=== PATIENT | female | born 1995 | race Asian ===

== ENCOUNTER 2024-08-01 08:35 | Inpatient (IN) ==
[2024-08-01] MEDS ORDERED: CALCIUM CARBONATE 500 MG CHEWABLE TAB PO PRN (08:48)
[2024-08-01] MEDS ORDERED: OXYTOCIN 30 UNITS/NSS 30 UNITS/500 ML BAG IV PRN (08:48)
[2024-08-01] MEDS ORDERED: LIDOCAINE 1% LOCAL 20 ML VIAL INFIL PRN (08:48)
[2024-08-01 09:52] LABS: Hematocrit (blood only) 34.5 % (37.0-47.0); Hemoglobin 11.5 g/dl (12.0-16.0); Mean Corpuscular Hemoglobin 31.9 pg (25.0-34.0); Mean Corpuscular Hgb Conc 33.3 g/dL (32.0-36.0); Mean Corpuscular Volume 95.8 fL (80.0-100.0); Mean Platelet Volume 9.8 fL (9.4-12.4); Platelet Count 182 K/uL (130-400); RDW Standard Deviation 45.1 fL (36.4-46.3); White Blood Count 9.91 K/ul (4.8-10.8)
[2024-08-01] MEDS: LACTATED RINGER'S 1,000 ML IV PRN (10:03)
[2024-08-01] MEDS: OXYTOCIN 30 UNITS/NSS 30 UNITS/500 ML BAG IV PRN (10:04)
--- NOTE | 2024-08-01 10:30 | History & Physical Report ---
Date of Service August 01, 2024 Assessment & Plan (1) Encounter for induction of labor: Plan: Patient is a 29yo at 38w3d admitted for induction of labor, IUGR. Sutherland bulb placed this AM Pitocin LR at 125cc/hr AROM when indicated Monitor tracing, currently category I (2) Gestational diabetes mellitus (GDM) affecting , antepartum: Plan: monitor for signs of hyperglycemia: - status of headache, vision changes, abdominal pain, nausea/vomiting - poc glucose if suspicious - treat accordingly with insulin Admission and Anticipated Discharge Date Admission Date: August 01, 2024 History of Present Illness Chief Complaint: induction of labor Primary Care Provider: Daron Batres DO Patient is a 29yo at 38w3d admitted for induction of labor. Complications include IUGR throughout and GDM treated with insulin. Sutherland bulb placed this AM. Patient endorses baby has been moving frequently. Notes intermittent contractions. Endorses minor vaginal bleeding last night. Endorses some clear vaginal discharge about a week ago but nothing since. Had a normal bowel movement this morning, urination this morning as well. Notes she has a minor frontal headache about 2-3/10, being managed with Tylenol. Denies any recent fever, body aches, chills, chest pain, SOB, abdominal pain, LE pain/swelling, or LE numbness/tingling. GBS neg, Rh+, T. pallidum neg Allergies Allergy/AdvReac Type Severity Reaction Status Date / Time No Known Allergies Allergy Verified 07/31/24 13:29 Home Medications Medication Instructions Recorded Confirmed Type 21-iron fu-folic acid 1 mg PO DAILY 12/29/23 08/01/24 History [ Complete] acetone (urine) test (Ketone Urine #50 ea 06/22/24 07/31/24 Rx Test strips) blood sugar diagnostic (OneTouch #150 ea 06/22/24 07/31/24 Rx Verio test strips) blood-glucose meter (OneTouch #1 ea 06/22/24 07/31/24 Rx Verio Reflect Meter) lancets 33 gauge (OneTouch Delica #150 ea 06/22/24 07/31/24 Rx Plus Lancet) ferrous sulfate 325 mg (65 mg 325 mg PO DAILY 08/01/24 08/01/24 History iron) tablet Patient History Medical History (Updated 08/01/24 @ 11:24 by Flroa Cuevas RN) History of pituitary tumor Removed in [place] Hx of migraines History of chicken pox Surgical History S/P tonsillectomy S/P wisdom tooth extraction Family History (Updated 12/29/23 @ 13:32 by Janelle Flor) Mother Diabetes Hypertension Fibroid Father Diabetes Hypertension Denies family history of Ovarian cancer Breast cancer Colorectal cancer Social History (Updated 12/29/23 @ 13:18 by Janelle Flor) Smoking Status: Never smoker Do You Dip or Chew Tobacco: No; Hx Alcohol Use: No Hx Substance Use: No Preferred Language: Urdu Communication Ability: Effective Floor Coverer Required: No Beliefs That Will Affect Care: None marital status: marital status details: Júnior Champion (29) [phone] Current Living Situation: Spouse Current Living Situation Comment: lives with spouse,no pets current occupational status: unemployed Other Information That Helps Us Care for You: No Feels Safe at Home: Yes Safety Concerns: Feels Safe At This Time Assistive Devices: None Review of Systems per HPI Physical Exam Physical Exam: General: A&Ox4, resting comfortably in NAD, nontoxic in appearance Skin: warm, dry, intact HEENT: NC/AT, anicteric sclerae, conjunctiva w/o injection, moist mucous membranes Heart: +s1/s2, RRR, no m/r/g Lungs: equal air entry b/l, clear to auscultation b/l, no wheeze, rales, or rhonchi Abd: +BS, gravid, mild tenderness to palpation, no erythema or lesions Cervical: 1/60/-2, mid, soft; est weight 6lbs Ext: no significant swelling, no erythema or tenderness to palpation; no cyanosis or clubbing Neuro: speech intact, no facial droop, moves all extremities on command : 140 baseline HR , moderate variability, accelerations present, decelerations absent Results & Data Vital Signs (Past 12 Hours) Vital Signs Temp Pulse Resp BP 08/01/24 10:03 75 08/01/24 10:03 112/69 08/01/24 09:30 18 08/01/24 09:30 18 08/01/24 08:59 36.7 C 20 08/01/24 08:50 93 H 111/70 Laboratory Results 08/01/24: Hgb 11.5, POC glucose 114 Code Status & VTE Plan VTE Prophylaxis Plan VTE Prophylaxis will be ordered: No Supervising Physician Co-Signing Physician Notes Resident Physician Supervision Note: I interviewed and examined the patient. Discussed with Dr. Morocho and agree with findings and plan as documented in the note. Any exceptions or clarifications are listed here: [None] Documented By: Carmen Chun MD, FACOG Resident Activity Tracking Resident Involvement: Resident Care Provided Care Provided: OB Delivery
[2024-08-01] MEDS: ACETAMINOPHEN 325 MG TAB PO PRN (12:03)
[2024-08-01] MEDS ORDERED: LIDOCAINE 2% MPF LOCAL 5 ML VIAL EPI PRN (12:35)
[2024-08-01] MEDS ORDERED: NALOXONE HCL 1 MG in SODIUM CHLORIDE 0.9% 1,000 ML IV PRN (12:35)
[2024-08-01] MEDS ORDERED: ROPIVACAINE 0.5% PF 5 MG/ML 20 ML VIAL EPI PRN (12:35)
[2024-08-01] MEDS ORDERED: ePHEDrine sulfate 50 MG/ML AMP IV PRN (12:35)
[2024-08-01] MEDS ORDERED: fentaNYL citrate PF 100 MCG/2 ML VIAL EPI PRN (12:35)
[2024-08-01] MEDS ORDERED: NALOXONE HCL 0.4 MG/1 ML VIAL/CARP IV PRN (12:35)
[2024-08-01] MEDS ORDERED: SODIUM CHLORIDE 0.9% PF INJ 10 ML VIAL EPI PRN (12:35)
[2024-08-01] MEDS ORDERED: BUPIVACAINE 0.25% PF 30 ML VIAL EPI PRN (12:35)
[2024-08-01] MEDS ORDERED: NALBUPHINE HCL INJ 10 MG/ML AMP IV PRN (12:35)
[2024-08-01] MEDS ORDERED: diphenhydrAMINE 50 MG/ML VIAL IV PRN (12:35)
--- NOTE | 2024-08-01 12:35 | Anesthesiology Consultation ---
Date of Service August 01, 2024 Assessment & Plan ASA ASA2 Proposed Anesthesia Anesthesia Type: Labor Epidural Risk / Benefits Reviewed With: PT / POA / Parent / Guardian, Accepts Plan and Informed Consent Obtained History Height/Weight Height: 5 ft 4.96 in Weight: 70.307 kg Allergies Allergy/AdvReac Type Severity Reaction Status Date / Time No Known Allergies Allergy Verified 07/31/24 13:29 Medications Home Medications Medication Instructions Recorded Confirmed Last Taken 21-iron fu-folic acid 1 mg PO DAILY 12/29/23 08/01/24 08/01/24 [ Complete] acetone (urine) test (Ketone Urine #50 ea 06/22/24 07/31/24 Unknown Test strips) blood sugar diagnostic (OneTouch #150 ea 06/22/24 07/31/24 Unknown Verio test strips) blood-glucose meter (OneTouch #1 ea 06/22/24 07/31/24 Unknown Verio Reflect Meter) lancets 33 gauge (OneTouch Delica #150 ea 06/22/24 07/31/24 Unknown Plus Lancet) ferrous sulfate 325 mg (65 mg 325 mg PO DAILY 08/01/24 08/01/24 08/01/24 iron) tablet Active Medications Generic Name Dose Route Start Last Admin Trade Name Freq PRN Reason Stop Dose Admin Acetaminophen 650 mg 08/01/24 08:48 08/01/24 12:03 Acetaminophen 325 Mg Tab PO 08/31/24 08:47 650 mg Q6H PRN Administration Pain Oxytocin 30 units in 500 mls @ 4 mls/hr 08/01/24 08:48 08/01/24 10:34 Pitocin 30 Units/Nss IV 08/03/24 08:47 0.24 units/hr .Q24H PRN 4 mls/hr Labor Induction/Augmentation Titration Protocol 0.24 UNITS/HR Lactated Ringer's 1,000 mls @ 125 mls/hr 08/01/24 08:48 08/01/24 12:38 Lr IV 08/03/24 08:47 50 mls/hr .Q8H PRN Infusion L&D Protocol Protocol Past Medical History Medical History (Updated 08/01/24 @ 11:24 by Flora Cuevas RN) History of pituitary tumor Removed in [place] Hx of migraines History of chicken pox Exercise / Class Metabolic Activity II 4-5 Yardwork/Stairs/Walk up hill Past Family History Family History (Updated 12/29/23 @ 13:32 by Janelle Flor) Mother Diabetes Hypertension Fibroid Father Diabetes Hypertension Denies family history of Ovarian cancer Breast cancer Colorectal cancer Past Surgical History Surgical History S/P tonsillectomy S/P wisdom tooth extraction Past Anesthesia History No Hx of Anesthesia Complications and No Family Hx of Anesthesia Complications History of PONV No Hx of PONV and No Hx of Motion Sickness Social History Smoking Status: Never smoker Do You Dip or Chew Tobacco: No Hx Alcohol Use: No Hx Substance Use: No substance use type: does not use Review of Systems denies fever/cough/ colds/ chest pain/ SOB/ LEANNA denies LEANNA Physical Exam Vital Signs Last Vital Signs Temp 36.7 C 08/01/24 08:59 Pulse 82 08/01/24 13:09 Resp 18 08/01/24 12:30 BP 107/58 L 08/01/24 13:09 Pulse Ox 99 08/01/24 13:08 ENMT Mouth: no TMJ abnormality and no dentition abnormality Thyromental Distance: > or= 3.5 Finger Breadths Mallampati Class: II Neck neck extension not limited Respiratory normal respiratory effort; no respiratory distress Auscultation: lungs clear to auscultation bilaterally Cardiovascular Rate/Rhythm: regular rate and regular rhythm Neurologic moves all extremities Psychiatric Orientation: alert and oriented x 3 Testing Laboratory Results 08/01/24 09:26 08/01/24 09:44 POC Glucose 114 H
[2024-08-01] MEDS: LIDOCAINE 2%/EPINEPHRINE 1:200,000 20 ML PF ONE (12:56)
[2024-08-01] MEDS: fentANYL 2 MCG/ML BUPIVacaine 0.125%-NSS 100ML BAG ONE (12:56)
[2024-08-01] MEDS: fentaNYL citrate PF 100 MCG/2 ML VIAL ONE (13:03)
[2024-08-01] MEDS: BUPIVACAINE 0.25% PF 30 ML VIAL ONE (13:03)
[2024-08-01] MEDS: fentaNYL citrate PF 100 MCG/2 ML VIAL EPI STA (13:40)
[2024-08-01] MEDS: BUPIVACAINE 0.25% PF 30 ML VIAL EPI STA (13:40)
[2024-08-01] MEDS: LIDOCAINE 2%/EPINEPHRINE 1:200,000 20 ML PF EPI STA (13:40)
[2024-08-01] MEDS: SODIUM CHLORIDE 0.9% PF INJ 10 ML VIAL EPI STA (13:40)
[2024-08-01] MEDS: SODIUM CHLORIDE 0.9% PF INJ 10 ML VIAL ONE (13:40)
[2024-08-01] MEDS: ONDANSETRON INJ 2 MG/ML 2 ML VIAL IV PRN (18:28)
[2024-08-01] MEDS: fentANYL 2 MCG/ML BUPIVacaine 0.125%-NSS 100ML BAG EPI PRN (20:45)
[2024-08-01] MEDS: diphenhydrAMINE 50 MG/ML VIAL IV STA (22:41)
--- NOTE | 2024-08-02 03:32 | Labor Progress Brief Note ---
Date of Service August 02, 2024 Subjective Reason For Note: Routine Evaluation contractions Q2 minutes with external toco FHT's not reactive but reassuring cervix 6cm/95/-1 IUPC placed Assessment & Plan Admission and Anticipated Discharge Date Admission Date: August 01, 2024 Results & Data Vital Signs (Past 12 Hours) Vital Signs Temp Pulse Resp BP Pulse Ox 08/02/24 03:28 81 96 08/02/24 03:23 87 96 08/02/24 03:18 96 08/02/24 03:18 78 08/02/24 03:18 76 113/67 08/02/24 03:13 75 96 08/02/24 03:08 76 96 08/02/24 03:05 18 08/02/24 03:05 98.8 F 18 08/02/24 03:03 85 114/63 96 08/02/24 02:58 85 95 08/02/24 02:53 88 96 08/02/24 02:48 72 95 08/02/24 02:46 71 107/59 L 08/02/24 02:43 70 95 08/02/24 02:38 72 96 08/02/24 02:33 69 95 08/02/24 02:32 71 106/58 L 08/02/24 02:28 73 95 08/02/24 02:23 76 95 08/02/24 02:18 71 96 08/02/24 02:16 71 122/68 08/02/24 02:13 70 95 08/02/24 02:08 85 97 08/02/24 02:03 69 96 08/02/24 02:01 73 111/66 08/02/24 01:58 68 96 08/02/24 01:53 73 96 08/02/24 01:48 68 96 08/02/24 01:47 68 118/69 08/02/24 01:43 75 97 08/02/24 01:40 18 08/02/24 01:40 98.8 F 18 08/02/24 01:38 87 94 08/02/24 01:33 76 96 08/02/24 01:31 74 107/57 L 08/02/24 01:28 72 95 08/02/24 01:23 76 96 08/02/24 01:18 73 96 08/02/24 01:17 74 106/57 L 08/02/24 01:13 73 95 08/02/24 01:08 71 96 08/02/24 01:03 73 96 08/02/24 01:01 72 101/59 L 08/02/24 00:58 72 95 08/02/24 00:53 73 96 08/02/24 00:48 96 08/02/24 00:48 74 08/02/24 00:48 73 101/56 L 08/02/24 00:43 71 96 08/02/24 00:38 75 96 08/02/24 00:33 71 95 08/02/24 00:31 71 102/59 L 08/02/24 00:28 72 96 08/02/24 00:23 73 96 08/02/24 00:19 18 08/02/24 00:19 98.4 F 18 08/02/24 00:18 79 96 08/02/24 00:16 75 102/55 L 08/02/24 00:13 76 96 08/02/24 00:08 79 96 08/02/24 00:03 79 97 08/02/24 00:02 78 108/58 L 08/01/24 23:58 96 08/01/24 23:58 79 08/01/24 23:53 96 08/01/24 23:53 78 08/01/24 23:48 96 08/01/24 23:48 79 08/01/24 23:47 78 08/01/24 23:47 108/59 L 08/01/24 23:43 96 08/01/24 23:43 78 08/01/24 23:38 96 08/01/24 23:38 78 08/01/24 23:33 97 08/01/24 23:33 78 08/01/24 23:31 78 08/01/24 23:31 109/61 08/01/24 23:28 95 08/01/24 23:28 80 08/01/24 23:23 96 08/01/24 23:23 77 08/01/24 23:18 97 08/01/24 23:18 77 08/01/24 23:16 80 08/01/24 23:16 112/62 08/01/24 23:13 96 08/01/24 23:13 81 08/01/24 23:08 96 08/01/24 23:08 81 08/01/24 23:03 97 08/01/24 23:03 84 08/01/24 23:01 83 08/01/24 23:01 105/63 08/01/24 22:58 96 08/01/24 22:58 83 08/01/24 22:53 96 08/01/24 22:53 85 08/01/24 22:48 96 08/01/24 22:48 88 08/01/24 22:46 96 H 08/01/24 22:46 115/70 08/01/24 22:43 97 08/01/24 22:43 91 H 08/01/24 22:38 97 08/01/24 22:38 92 H 08/01/24 22:33 96 08/01/24 22:33 93 H 08/01/24 22:32 91 H 08/01/24 22:32 116/66 08/01/24 22:28 95 08/01/24 22:28 88 08/01/24 22:23 96 08/01/24 22:23 92 H 08/01/24 22:18 94 08/01/24 22:18 88 08/01/24 22:18 88 08/01/24 22:18 113/69 08/01/24 22:13 95 08/01/24 22:13 95 H 08/01/24 22:08 98 08/01/24 22:08 98 H 08/01/24 22:03 99 08/01/24 22:03 98 H 08/01/24 22:01 104 H 08/01/24 22:01 106/59 L 08/01/24 21:58 98 08/01/24 21:58 99 H 08/01/24 21:53 99 08/01/24 21:53 95 H 08/01/24 21:48 98 08/01/24 21:48 100 H 08/01/24 21:47 100 H 08/01/24 21:47 117/61 08/01/24 21:43 97 08/01/24 21:43 103 H 08/01/24 21:38 99 08/01/24 21:38 100 H 08/01/24 21:33 97 08/01/24 21:33 96 H 08/01/24 21:32 97 H 08/01/24 21:32 113/67 08/01/24 21:28 97 08/01/24 21:28 96 H 08/01/24 21:23 97 08/01/24 21:23 93 H 08/01/24 21:18 97 08/01/24 21:18 93 H 08/01/24 21:16 96 H 08/01/24 21:16 114/67 08/01/24 21:13 97 08/01/24 21:13 94 H 08/01/24 21:08 96 08/01/24 21:08 98 H 08/01/24 21:03 93 08/01/24 21:03 101 H 08/01/24 21:01 87 08/01/24 21:01 99/56 L 08/01/24 21:00 18 08/01/24 21:00 98.2 F 18 08/01/24 20:58 96 08/01/24 20:58 84 08/01/24 20:53 96 08/01/24 20:53 84 08/01/24 20:48 96 08/01/24 20:48 89 08/01/24 20:47 86 08/01/24 20:47 101/57 L 08/01/24 20:43 94 08/01/24 20:43 89 08/01/24 20:38 95 08/01/24 20:38 86 08/01/24 20:33 95 08/01/24 20:33 86 08/01/24 20:32 86 08/01/24 20:32 112/55 L 08/01/24 20:28 96 08/01/24 20:28 85 08/01/24 20:23 95 08/01/24 20:23 84 08/01/24 20:18 96 08/01/24 20:18 84 08/01/24 20:16 86 08/01/24 20:16 101/59 L 08/01/24 20:13 96 08/01/24 20:13 85 08/01/24 20:08 94 08/01/24 20:08 86 08/01/24 20:03 95 08/01/24 20:03 84 08/01/24 20:02 78 08/01/24 20:02 100/59 L 08/01/24 19:58 95 08/01/24 19:58 85 08/01/24 19:53 95 08/01/24 19:53 83 08/01/24 19:48 95 08/01/24 19:48 83 08/01/24 19:46 81 08/01/24 19:46 101/57 L 08/01/24 19:43 95 08/01/24 19:43 80 08/01/24 19:38 95 08/01/24 19:38 82 08/01/24 19:33 95 08/01/24 19:33 83 08/01/24 19:32 83 08/01/24 19:32 96/51 L 08/01/24 19:28 93 08/01/24 19:28 92 H 08/01/24 19:23 95 08/01/24 19:23 83 08/01/24 19:18 95 08/01/24 19:18 91 H 08/01/24 19:17 86 08/01/24 19:17 118/67 08/01/24 19:13 95 08/01/24 19:13 87 08/01/24 19:08 96 08/01/24 19:08 87 08/01/24 19:05 99.0 F 18 08/01/24 19:03 96 08/01/24 19:03 87 08/01/24 19:02 85 08/01/24 19:02 119/73 08/01/24 18:58 95 08/01/24 18:58 83 08/01/24 18:53 96 08/01/24 18:53 89 08/01/24 18:48 95 08/01/24 18:48 88 08/01/24 18:47 89 08/01/24 18:47 119/73 08/01/24 18:45 18 08/01/24 18:45 18 08/01/24 18:43 98 08/01/24 18:43 96 H 08/01/24 18:38 96 08/01/24 18:38 91 H 08/01/24 18:33 97 08/01/24 18:33 91 H 08/01/24 18:31 95 H 08/01/24 18:31 127/79 08/01/24 18:30 18 08/01/24 18:30 18 08/01/24 18:28 95 08/01/24 18:28 102 H 08/01/24 18:24 87 L 08/01/24 18:24 102 H 08/01/24 18:23 90 08/01/24 18:23 100 H 08/01/24 18:18 100 08/01/24 18:18 92 H 08/01/24 18:18 88 08/01/24 18:18 119/73 08/01/24 18:13 98 08/01/24 18:13 86 08/01/24 18:08 98 08/01/24 18:08 89 08/01/24 18:03 98 08/01/24 18:03 93 H 08/01/24 18:01 90 08/01/24 18:01 114/70 08/01/24 18:00 18 08/01/24 18:00 18 08/01/24 18:00 88 08/01/24 18:00 117/74 08/01/24 17:58 99 08/01/24 17:58 94 H 08/01/24 17:53 96 08/01/24 17:53 92 H 08/01/24 17:48 97 08/01/24 17:48 91 H 08/01/24 17:47 92 H 08/01/24 17:47 113/64 08/01/24 17:43 97 08/01/24 17:43 92 H 08/01/24 17:38 97 08/01/24 17:38 88 08/01/24 17:33 97 08/01/24 17:33 88 08/01/24 17:32 86 08/01/24 17:32 107/58 L 08/01/24 17:30 18 08/01/24 17:30 18 08/01/24 17:28 97 08/01/24 17:28 90 08/01/24 17:23 97 08/01/24 17:23 86 08/01/24 17:18 98 08/01/24 17:18 89 08/01/24 17:16 93 H 08/01/24 17:16 111/63 08/01/24 17:13 97 08/01/24 17:13 89 08/01/24 17:08 96 08/01/24 17:08 84 08/01/24 17:03 95 08/01/24 17:03 85 08/01/24 17:01 89 08/01/24 17:01 107/62 08/01/24 17:00 18 08/01/24 17:00 18 08/01/24 16:58 96 08/01/24 16:58 88 08/01/24 16:53 97 08/01/24 16:53 92 H 08/01/24 16:48 98 08/01/24 16:48 89 08/01/24 16:47 89 08/01/24 16:47 109/64 08/01/24 16:43 97 08/01/24 16:43 81 08/01/24 16:38 97 08/01/24 16:38 87 08/01/24 16:33 97 08/01/24 16:33 85 08/01/24 16:31 86 08/01/24 16:31 107/63 08/01/24 16:30 20 08/01/24 16:30 20 08/01/24 16:28 98 08/01/24 16:28 84 08/01/24 16:23 97 08/01/24 16:23 84 08/01/24 16:18 97 08/01/24 16:18 86 08/01/24 16:16 75 08/01/24 16:16 106/59 L 08/01/24 16:15 99.1 F 08/01/24 16:13 100 08/01/24 16:13 83 08/01/24 16:08 100 08/01/24 16:08 86 08/01/24 16:03 99 08/01/24 16:03 92 H 08/01/24 16:01 83 08/01/24 16:01 114/63 08/01/24 16:00 18 08/01/24 16:00 18 08/01/24 15:58 99 08/01/24 15:58 83 08/01/24 15:53 100 08/01/24 15:53 76 08/01/24 15:48 99 08/01/24 15:48 92 H 08/01/24 15:47 77 08/01/24 15:47 125/68 08/01/24 15:43 100 08/01/24 15:43 85 08/01/24 15:38 100 08/01/24 15:38 79 08/01/24 15:33 98 08/01/24 15:33 81 08/01/24 15:32 83 08/01/24 15:32 115/74 Coding Level of Care Code None
[2024-08-02] MEDS ORDERED: ePHEDrine sulfate 50 MG/ML AMP IV PRN (12:41)
[2024-08-02] MEDS ORDERED: NALOXONE HCL 1 MG in SODIUM CHLORIDE 0.9% 1,000 ML IV PRN (12:41)
[2024-08-02] MEDS ORDERED: LIDOCAINE 2% MPF LOCAL 5 ML VIAL EPI PRN (12:41)
[2024-08-02] MEDS ORDERED: fentaNYL citrate PF 100 MCG/2 ML VIAL EPI PRN (12:41)
[2024-08-02] MEDS ORDERED: BUPIVACAINE 0.25% PF 30 ML VIAL EPI PRN (12:41)
[2024-08-02] MEDS ORDERED: NALBUPHINE HCL INJ 10 MG/ML AMP IV PRN (12:41)
[2024-08-02] MEDS ORDERED: diphenhydrAMINE 50 MG/ML VIAL IV PRN (12:41)
[2024-08-02] MEDS ORDERED: SODIUM CHLORIDE 0.9% PF INJ 10 ML VIAL EPI PRN (12:41)
[2024-08-02] MEDS ORDERED: NALOXONE HCL 0.4 MG/1 ML VIAL/CARP IV PRN (12:41)
[2024-08-02] MEDS ORDERED: fentANYL 2 MCG/ML BUPIVacaine 0.125%-NSS 100ML BAG EPI PRN (12:41)
[2024-08-02] MEDS ORDERED: ROPIVACAINE 0.5% PF 5 MG/ML 20 ML VIAL EPI PRN (12:41)
[2024-08-02] MEDS: fentANYL 2 MCG/ML BUPIVacaine 0.125%-NSS 100ML BAG ONE (12:43)
[2024-08-02] MEDS: LIDOCAINE 2%/EPINEPHRINE 1:200,000 20 ML PF EPI STA (12:56)
[2024-08-02] MEDS: fentaNYL citrate PF 100 MCG/2 ML VIAL EPI STA (12:56)
[2024-08-02] MEDS: SODIUM CHLORIDE 0.9% PF INJ 10 ML VIAL EPI STA (12:56)
[2024-08-02] MEDS: BUPIVACAINE 0.25% PF 30 ML VIAL EPI STA (12:56)
[2024-08-02] MEDS: ONDANSETRON INJ 2 MG/ML 2 ML VIAL ONE (14:25)
[2024-08-02] MEDS ORDERED: ONDANSETRON INJ 2 MG/ML 2 ML VIAL IV PRN (14:33)
[2024-08-02] MEDS: miSOPROStoL 200 MCG TAB PR ONE (17:20)
[2024-08-02] MEDS: ePHEDrine sulfate 50 MG/ML AMP ONE (17:33)
[2024-08-02] MEDS: miSOPROStoL 200 MCG TAB ONE (17:39)
--- NOTE | 2024-08-02 17:40 | Anesthesia Procedure Note ---
Date of Service August 02, 2024 Anesthesia Post Epidural Note Vital Signs Vital Signs: Temp Pulse Resp BP Pulse Ox 37.5 C 78 22 114/70 96 08/02/24 15:19 08/02/24 17:38 08/02/24 17:00 08/02/24 17:36 08/02/24 17:38 Pain Intensity Lower Abdomen: Pain Intensity: 9 Notes Mental Status: alert / awake / arousable and participated in evaluation Nausea / Vomiting: adequately controlled Pain: adequately controlled Airway Patency, RR, SpO2: stable & adequate BP & HR: stable & adequate Hydration State: stable & adequate Neuraxial Anesthesia: was administered and sensory block is resolving Anesthetic Complications: no major complications apparent Epidural: Removed without complications and With tip intact
[2024-08-02] MEDS ORDERED: OXYTOCIN 30 UNITS/NSS 30 UNITS/500 ML BAG IV PRN (17:41)
[2024-08-02] MEDS ORDERED: bisacodyL 10 MG SUPP PR PRN (17:41)
[2024-08-02] MEDS ORDERED: HYDROCORTISONE ACETATE 25 MG SUPP PR PRN (17:41)
[2024-08-02] MEDS ORDERED: ACETAMINOPHEN 325 MG TAB PO PRN (17:41)
--- NOTE | 2024-08-02 17:46 | Delivery Summary ---
Vaginal Delivery Summary Date of Service August 02, 2024 Vaginal Delivery Summary and 2nd Degree LAC Progressed to 10 cm dilated 100% effaced +2 station pushed over intact perineum with epidural anesthesia and delivered a viable female with weight and Apgars pending. Head delivered without difficulty quickly followed by shoulders and remainder of body. was noted to be vigorous soon after delivery and a 1 minute delayed cord clamping was initiated. Cord is then double clamped and cut and remained on maternal abdomen. Cord blood obtained. Attention turned to deliver the placenta delivered intact with three-vessel cord gentle cord traction. Inspection of perineum vagina cervix there is noted to be a second-degree perineal laceration which was repaired with 3-0 Vicryl traditional crown stitch. Needle sponge and instrument counts are correct at the completion of the case. Both mother and stable in the immediate post delivery timeframe. No complications noted and blood loss per QBL. [facility] Vaginal Delivery Charge Delivery Type Details: and 2nd Degree LAC
[2024-08-02] MEDS: DIPHTHER/TETAN/PERTUS Vaccine (Tdap, Adol/Adult) 0.5mL IM ONE (18:06)
[2024-08-02] MEDS: IBUPROFEN 600 MG TAB PO PRN (21:25)
[2024-08-02] MEDS: DOCUSATE SODIUM 100 MG CAP PO SCH (21:25)
[2024-08-03] MEDS: BENZOCAINE 20% SPRY 85 APPLN/85 GM CAN EXT PRN (04:17)
--- NOTE | 2024-08-03 06:26 | Obstetrical Progress Note ---
Date of Service <Vicente Miner DO - Last Filed: 08/03/24 07:41> August 03, 2024 Assessment & Plan <Vicente Miner DO - Last Filed: 08/03/24 07:41> (1) state: Patient is a 29yo day 1 s/p with 2nd deg perineal lac during delivery. Patient feeling well, VSS Continue care Ambulation and as tolerated Pain control Hgb: 11.5 on 08/01, asymptomatic currently Home: tomorrow or next day Follow up with Dr. Neal in 6wks. (2) Perineal laceration during delivery: second-degree perineal laceration which was repaired with 3-0 Vicryl traditional crown stitch monitor for signs of infection pain control as needed Perineal laceration degree: second degree Qualified Code(s): O70.1 - Second degree perineal laceration during delivery <Todd Neal MD - Last Filed: 08/03/24 08:12> (1) state: (2) Perineal laceration during delivery: Subjective <Vicente Miner DO - Last Filed: 08/03/24 07:41> Patient is a 29yo day 1 s/p with 2nd deg perineal lac during delivery. Ambulation: yes Voiding: urinating, no BM yet Passing gas: yes Diet tolerance: had 2x emesis last night after trying to eat, feeling better this morning and hungry Lochia: decreasing Feeding type: full bottle feeds, going well Current pain: 4-5/10 lower abdomen and lower back pain, otherwise minimal Resting comfortably this AM in NAD. Denies fever, chills, headache, vision changes, chest pain, SOB, abdominal pain, LE pain/swelling, or LE numbness/tingling. Review of Systems as above Physical Exam <Vicente Miner DO - Last Filed: 08/03/24 07:41> General: A&Ox4, resting comfortably in NAD, nontoxic in appearance Skin: warm, dry, intact HEENT: NC/AT, anicteric sclerae, conjunctiva w/o injection, moist mucous membranes Heart: +s1/s2, RRR, no m/r/g Lungs: equal air entry b/l, clear to auscultation b/l, no wheeze, rales, or rhonchi Abd: +BS, soft, uterine fundus firm, right of midline and 1 fingerwidth superior to umbilicus, mildly tender to palpation Ext: no significant swelling, no erythema or tenderness to palpation; no cyanosis or clubbing Neuro: speech intact, no facial droop, moves all extremities on command Results & Data <Vicente Miner DO - Last Filed: 08/03/24 07:41> Vital Signs (Past 12 Hours) Vital Signs Temp Pulse Pulse Resp BP BP Pulse Ox 08/03/24 04:05 36.6 C 70 20 110/75 97 08/03/24 00:00 37.2 C 64 18 109/73 96 08/02/24 19:50 36.5 C 72 20 122/80 99 08/02/24 19:45 36.4 C L 18 08/02/24 19:21 76 112/73 08/02/24 19:06 72 111/67 08/02/24 18:51 74 116/72 08/02/24 18:36 16 08/02/24 18:36 77 128/70 O2 Del Method 08/03/24 04:05 Room Air 08/03/24 00:00 Room Air 08/02/24 19:50 Room Air 08/02/24 19:45 08/02/24 19:21 08/02/24 19:06 08/02/24 18:51 08/02/24 18:36 08/02/24 18:36 Supervising Physician <Todd Neal MD - Last Filed: 08/03/24 08:12> Co-Signing Physician Notes Patient seen with resident and agree with the above findings and plan. Routine care. Resident Activity Tracking <Vicente Miner DO - Last Filed: 08/03/24 07:41> Resident Involvement: Resident Care Provided Care Provided: OB Delivery
[2024-08-03] MEDS: PRENATAL VITAMIN 1 TAB PO SCH (10:11)
[2024-08-03] MEDS: FERROUS SULFATE 325 MG TAB PO SCH (13:11)
[2024-08-03] MEDS: HYDROCORTISONE 1% CRM 30 GM TUBE EXT SCH (20:07)
[2024-08-03] MEDS: bisacodyL 5 MG TABEC PO SCH (20:07)
--- NOTE | 2024-08-04 05:43 | Obstetrical Progress Note ---
Date of Service <Vicente Strattonfranca - Last Filed: 08/04/24 07:02> August 04, 2024 Assessment & Plan <Vicente Strattonfranca - Last Filed: 08/04/24 07:02> (1) state: Patient is a 29yo day 2 s/p with 2nd deg perineal lac during delivery. Patient feeling well, VSS Continue care Ambulation and as tolerated Pain control Hgb: 11.5 on 08/01, remains asymptomatic Home: today Follow up with Dr. Neal in 6wks. (2) Perineal laceration during delivery: second-degree perineal laceration which was repaired with 3-0 Vicryl traditional crown stitch monitor for signs of infection pain control as needed Perineal laceration degree: second degree Qualified Code(s): O70.1 - Second degree perineal laceration during delivery <Asiya Vaughan MD - Last Filed: 08/04/24 07:43> (1) state: (2) Perineal laceration during delivery: Subjective <Vicente Lehmanemery - Last Filed: 08/04/24 07:02> Patient is a day 2 s/p . Ambulation: yes Voiding: urinating, no BM yet Passing gas: yes Diet tolerance: yes, OB reg Lochia: decreasing Feeding type: breast, open to bottle/formula if necessary Current pain: mild abdominal cramping, otherwise minimal Resting comfortably this AM in NAD. Denies fever, chills, headache, vision changes, chest pain, SOB, abdominal pain, LE pain/swelling, or LE numbness/tingling. Review of Systems as above Physical Exam <Vicente ToddTracey KristoferDO emery - Last Filed: 08/04/24 07:02> General: A&Ox4, resting comfortably in NAD, nontoxic in appearance Skin: warm, dry, intact HEENT: NC/AT, anicteric sclerae, conjunctiva w/o injection, moist mucous membranes Heart: +s1/s2, RRR, no m/r/g Lungs: equal air entry b/l, clear to auscultation b/l, no wheeze, rales, or rhonchi Abd: +BS, soft, uterine fundus firm at level of umbilicus, mildly tender to palpation Ext: no significant swelling, no erythema or tenderness to palpation; no cyanosis or clubbing Neuro: speech intact, no facial droop, moves all extremities on command Results & Data <Vicente Miner DO - Last Filed: 08/04/24 07:02> Vital Signs (Past 12 Hours) Vital Signs Temp Pulse Resp BP Pulse Ox O2 Del Method 08/03/24 23:04 36.6 C 69 18 105/67 98 Room Air 08/03/24 19:00 Room Air 08/03/24 18:57 36.5 C 76 18 118/79 98 Room Air Supervising Physician <Asiya Vaughan MD - Last Filed: 08/04/24 07:43> Co-Signing Physician Notes Resident Physician Supervision Note: I interviewed and examined the patient. Discussed with Dr. Miner and agree with findings and plan as documented in the note. Any exceptions or clarifications are listed here: Patient with bilateral upper buttock erythematous patches and one unroofed blister noted yesterday afternoon likely 2/2 excessive chemically- activated icepack application to the area. Reports significant improvement this morning. Documented By: Asiya Vaughan MD, FACOG Resident Activity Tracking <Vicente Miner DO - Last Filed: 08/04/24 07:02> Resident Involvement: Resident Care Provided Care Provided: OB Delivery
[2024-08-04 08:02] VITALS: BP 111/79; PULSE 90; RESP 16; TEMP 97.2; O2SAT 99
[2024-08-04] MEDS: MEASLES, MUMPS & RUBELLA VIRUS VACCINE (MMR) 0.5ML VIAL SQ ONE (10:31)
== END 2024-08-04 12:25 | disposition home or self-care (01) | DRG 807 ==
LOC: 4S1 08:35 → 4E2 08-02 20:24